=== PATIENT | female | born 1935 | race Asian ===

== ENCOUNTER → 2016-06-29 | Outpatient (CLI) | payer MEDICARE, OTHER ==
[~2016-06-29] MED LIST: ACET-2247 PO; ACYC800T PO; ADV250 IH; ALBU8HFA IH; ALEN70TA48 PO; AMLO-511 PO; AMLO10TA55 PO; AMPI2VIA9 IVPB; ASPI-1093 PO; ATOR10TA84 PO; AUD NEB; BUDE10.2 IH; CALC650T29 PO; CEFT1FRO3 IVPB; CETI-260 PO; CIP250 PO; D-ME118S13 PO; D50SYG IVP; DIGO125T71 PO; DIPH25 PO; DRON2.5C PO; FERR-89 PO; FLUT1DIS5 IH; FLUT44HFA IH; HYDR-3965 PO; INSNOV SQ; IPRA3AMP4 NEB; IPRAHFA IH; KDUR20 PO; LEVO5TAB13 PO; METF10002 PO; METF500T4 PO; MOME17N NS; MONT10TA21 PO; MULT-1238 PO; MULT-1259 PO; ONDA2VIA2 IV; OS500 PO; OXYC-341 PO; PANT40TA25 PO; PRED10TA3 PO; PRED20 PO; RIVA10 PO; RIVA20TA PO; SITA100 PO; TIOT185 IH; ZAFI20TA13 PO; ZOLP10 PO
== END | disposition home or self-care (01) ==
LOC: RADPV 12:59
PROVIDERS: ATTEND Family Medicine
DX: I51.7 Cardiomegaly (principal); I70.0 Atherosclerosis of aorta; J47.9 Bronchiectasis, uncomplicated
CPT/HCPCS: 71020

== ENCOUNTER 2016-06-30 15:52 | Inpatient (IN) | payer MEDICARE, OTHER ==
[~2016-06-30] VITALS: Ht 144.8 cm; Wt 40.1 kg
[~2016-06-30 15:52] MED LIST changes: -ACYC800T PO; -ADV250 IH; -AMLO10TA55 PO; -AMPI2VIA9 IVPB; -ATOR10TA84 PO; -AUD NEB; -BUDE10.2 IH; -CEFT1FRO3 IVPB; -CETI-260 PO; -CIP250 PO; -D-ME118S13 PO; -D50SYG IVP; -DIPH25 PO; -FERR-89 PO; -FLUT44HFA IH; -INSNOV SQ; -IPRA3AMP4 NEB; -KDUR20 PO; -LEVO5TAB13 PO; -METF500T4 PO; -MONT10TA21 PO; -MULT-1259 PO; -ONDA2VIA2 IV; -OS500 PO; -OXYC-341 PO; -PANT40TA25 PO; -PRED20 PO; -RIVA10 PO; -SITA100 PO; -TIOT185 IH; -ZOLP10 PO
[2016-06-30 16:06] LABS: GLUCOSE,POINT OF CARE 132 MG/DL (70-110)
[2016-06-30 17:27] LABS: HEMATOCRIT 43.6 % (36-46); HEMOGLOBIN 14.2 g/dL (12.0-16.0); MEAN CORPUSCULAR HEMOGLOBIN 29.9 pg (26.0-34.0); MEAN CORPUSCULAR HGB CONC 32.6 G/dL (31.0-37.0); MEAN CORPUSCULAR VOLUME 92 fL (80-100); PLATELET COUNT (AUTO) 189 K/uL (150-450); RED BLOOD CELL COUNT(AUTO) 4.75 MIL/uL (4.00-5.20); RED CELL DISTRIBUTION WIDTH 13.6 % (11.5-14.5); WHITE BLOOD COUNT (AUTO) 8.1 K/uL (4.5-11.0)
[2016-06-30 17:47] LABS: BAND NEUTROPHILS % (MANUAL) 21 % (1-5); LYMPHOCYTES % (MANUAL) 20 % (22-44); TOTAL CELLS COUNTED 100
[2016-06-30 17:48] LABS: RBC MORPHOLOGY COMMENT NORMAL RBC MORPH; WBC MORPHOLOGY TOXIC VACUOLATION
[2016-06-30 17:56] LABS: CALCIUM, TOTAL 7.9 mg/dL (8.8-10.5); CREATININE 1.3 mg/dL (0.60-1.30); POTASSIUM 4.1 mmol/L (3.5-5.1)
[2016-06-30 18:03] LABS: ALBUMIN 2.9 g/dL (3.4-5.0); BILIRUBIN,TOTAL 0.8 mg/dL (0.1-1.0); TOTAL PROTEIN, SERUM 7.6 g/dL (6.4-8.2)
[2016-06-30 18:39] LABS: APPEARANCE,URINE CLOUDY (CLEAR); GLUCOSE, URINE (UA) NEGATIVE (NEGATIVE); KETONES,URINE NEGATIVE (NEGATIVE); LEUKOCYTE ESTERASE ,URINE SMALL (NEGATIVE); OCCULT BLOOD,URINE NEGATIVE (NEGATIVE); PROTEIN,URINE POS 1+ (NEGATIVE)
[2016-06-30 18:42] LABS: ADD UA MICROSCOPIC YES
[2016-06-30] MEDS ORDERED: SODIUM CHLORIDE 0.9% 1,000 ML IV ONE (18:45)
[2016-06-30 19:03] LABS: TRANSITIONAL EPI CELLS,URINE Few /LPF (None Seen)
[2016-06-30] MEDS ORDERED: AZITHROMYCIN 500 MG/NS 250 ML IV ONE (19:15)
[2016-06-30] MEDS ORDERED: CefTRIAXone 1 GM/DEXTROSE 50 ML IV ONE (19:15)
[2016-06-30] MEDS ORDERED: ACETAMINOPHEN 325 MG TABLET PO PRN (19:15)
[2016-06-30] MEDS ORDERED: 0.9% SODIUM CHLORIDE 10 ML SYRINGE IVP PRN (19:15)
[2016-06-30 21:22] VITALS: BP 125/70
[2016-06-30] MEDS ORDERED: PNEUMOCOCCAL VACCINE POLYVALENT 0.5 ML VIAL [PPSV23] IM ONE (22:15)
[2016-06-30] MEDS ORDERED: -PHARMACY VACCINE NOTE- MISC ONE ×2 (22:15)
[2016-06-30 23:47] VITALS: BP 116/61
[2016-07-01] VITALS (7 sets, daily range): BP systolic 110–127; BP diastolic 58–80
[2016-07-01] MEDS ORDERED: ACETAMINOPHEN 325 MG TABLET PO PRN ×2 (02:15→02:30)
[2016-07-01] MEDS ORDERED: DEXTROSE 50%-WATER 25 GM/50 ML SYRINGE IVP PRN (02:15)
[2016-07-01] MEDS ORDERED: 0.9% SODIUM CHLORIDE 10 ML SYRINGE IVP PRN (02:30)
[2016-07-01] MEDS ORDERED: MAGNESIUM HYDROXIDE SUSPENSION 30 ML UDCUP PO PRN (02:30)
[2016-07-01] MEDS ORDERED: OxyCODONE HCL/ACETAMINOPHEN 5-325 MG TABLET PO PRN ×2 (02:30)
[2016-07-01] MEDS ORDERED: ONDANSETRON HCL 4 MG/2 ML VIAL IVP PRN (02:30)
[2016-07-01] MEDS ORDERED: ALBUTEROL SULFATE 2.5 MG/0.5 ML NEB SOLUTION NEB SCH (03:00)
[2016-07-01] MEDS: DOCUSATE SODIUM 100 MG CAPSULE PO SCH ×3 (05:35→20:12)
[2016-07-01] MEDS: MethylPREDNISolone SOD SUCC 40 MG/ML VIAL IVP SCH ×5 (05:35→23:50)
[2016-07-01] MEDS: RIVAROXABAN 20 MG TABLET PO SCH ×2 (05:35→17:54)
[2016-07-01] MEDS: ALBUTEROL SULFATE 2.5 MG/0.5 ML NEB SOLUTION NEB SCH ×5 (08:45→22:46)
[2016-07-01] MEDS: IPRATROPIUM BROMIDE 0.5 MG/2.5 ML NEB SOLUTION NEB SCH ×5 (08:45→22:46)
[2016-07-01 09:19] LABS: HEMOGLOBIN 14.4 g/dL (12.0-16.0); MEAN CORPUSCULAR HEMOGLOBIN 30.4 pg (26.0-34.0); MEAN CORPUSCULAR HGB CONC 32.8 G/dL (31.0-37.0); MEAN CORPUSCULAR VOLUME 93 fL (80-100); PLATELET COUNT (AUTO) 207 K/uL (150-450); RED BLOOD CELL COUNT(AUTO) 4.74 MIL/uL (4.00-5.20); RED CELL DISTRIBUTION WIDTH 13.4 % (11.5-14.5)
[2016-07-01 09:26] LABS: CALCIUM, TOTAL 7.7 mg/dL (8.8-10.5); CREATININE 1.2 mg/dL (0.60-1.30); POTASSIUM 4.4 mmol/L (3.5-5.1)
[2016-07-01 10:06] LABS: BAND NEUTROPHILS % (MANUAL) 45 % (1-5); LYMPHOCYTES % (MANUAL) 7 % (22-44); TOTAL CELLS COUNTED 100
[2016-07-01] MEDS: ASPIRIN 81 MG EC TABLET PO SCH (10:09)
[2016-07-01] MEDS: ZAFIRLUKAST 20 MG TABLET PO SCH (10:09)
[2016-07-01] MEDS: PANTOPRAZOLE SODIUM 40 MG/VIAL IVP SCH (10:09)
[2016-07-01] MEDS: DIGOXIN 125 MCG TABLET PO SCH (10:10)
[2016-07-01] MEDS: AmLODIPine BESYLATE 5 MG TABLET PO SCH (10:10)
[2016-07-01 11:41] LABS: GLUCOSE,POINT OF CARE 164 MG/DL (70-110)
[2016-07-01] MEDS: INSULIN ASPART 100 UNITS/ML SQ PRN ×3 (12:03→20:37)
[2016-07-01] MEDS: SODIUM CHLORIDE 0.9% 1,000 ML IV SCH ×2 (13:26→23:17)
[2016-07-01] MEDS ORDERED: CefTRIAXone 1 GM/DEXTROSE 50 ML IV SCH (20:00)
[2016-07-01] MEDS ORDERED: DRONABINOL 2.5 MG CAPSULE PO SCH (21:00)
[2016-07-01 22:31] LABS: GLUCOSE COMMENT 1 Received Meds; GLUCOSE,POINT OF CARE 279 MG/DL (70-110)
[2016-07-01 22:31] LABS: GLUCOSE COMMENT 1 Received Meds; GLUCOSE,POINT OF CARE 301 MG/DL (70-110)
[2016-07-02] MEDS: ALBUTEROL SULFATE 2.5 MG/0.5 ML NEB SOLUTION NEB SCH ×4 (02:54→13:54)
[2016-07-02] MEDS: IPRATROPIUM BROMIDE 0.5 MG/2.5 ML NEB SOLUTION NEB SCH ×4 (02:54→13:54)
[2016-07-02 04:09] VITALS: BP 121/65
[2016-07-02] MEDS: INSULIN ASPART 100 UNITS/ML SQ PRN ×2 (06:29→12:04)
[2016-07-02 07:14] LABS: EOSINOPHILS % (AUTO) 0 % (1.0-6.0); HEMATOCRIT 41.1 % (36-46); HEMOGLOBIN 13.3 g/dL (12.0-16.0); LYMPHOCYTES # (AUTO) 0.6 K/uL (1.0-4.8); LYMPHOCYTES % (AUTO) 9.2 % (22.0-44.0); MEAN CORPUSCULAR HEMOGLOBIN 30.3 pg (26.0-34.0); MEAN CORPUSCULAR HGB CONC 32.4 G/dL (31.0-37.0); MEAN CORPUSCULAR VOLUME 93 fL (80-100); MONOCYTES # (AUTO) 0.2 K/uL (0.1-1.0); MONOCYTES % (AUTO) 2.4 % (2.0-9.0); NEUTROPHILS # (AUTO) 6.1 K/uL (1.8-7.7); PLATELET COUNT (AUTO) 200 K/uL (150-450); RED BLOOD CELL COUNT(AUTO) 4.39 MIL/uL (4.00-5.20); RED CELL DISTRIBUTION WIDTH 13.2 % (11.5-14.5); WHITE BLOOD COUNT (AUTO) 6.9 K/uL (4.5-11.0)
[2016-07-02 07:16] VITALS: BP 127/68
[2016-07-02 07:16] LABS: NEUTROPHILS % (AUTO) 88.4 % (40.0-70.0)
[2016-07-02 07:30] LABS: ANION GAP 6 mmol/L (8-16); CALCIUM, TOTAL 7.8 mg/dL (8.8-10.5); CARBON DIOXIDE 28 mmol/L (22-29); CHLORIDE 100 mmol/L (98-107); CREATININE 0.77 mg/dL (0.60-1.30); GLOMERULAR FILTR. RATE CALC > 60 mL/min (>60); POTASSIUM 4.3 mmol/L (3.5-5.1); SODIUM SERUM 134 mmol/L (136-145); UREA NITROGEN, BLOOD 22 mg/dL (7-18)
[2016-07-02] MEDS ORDERED: SITA100 PO (08:40)
[2016-07-02] MEDS ORDERED: D-ME118S13 PO (08:40)
[2016-07-02] MEDS ORDERED: ALBU8HFA IH (08:40)
[2016-07-02] MEDS ORDERED: DIPH25 PO (08:40)
[2016-07-02] MEDS ORDERED: FERR-89 PO (08:40)
[2016-07-02] MEDS ORDERED: LEVO5TAB13 PO (08:40)
[2016-07-02] MEDS ORDERED: PANT40TA25 PO (08:40)
[2016-07-02] MEDS ORDERED: MULT-1259 PO (08:40)
[2016-07-02] MEDS ORDERED: MONT10TA21 PO (08:40)
[2016-07-02] MEDS: SODIUM CHLORIDE 0.9% 1,000 ML IV SCH (09:30)
[2016-07-02] MEDS: DIGOXIN 125 MCG TABLET PO SCH (09:37)
[2016-07-02] MEDS: DOCUSATE SODIUM 100 MG CAPSULE PO SCH (09:37)
[2016-07-02] MEDS: PANTOPRAZOLE SODIUM 40 MG/VIAL IVP SCH (09:37)
[2016-07-02] MEDS: ZAFIRLUKAST 20 MG TABLET PO SCH (09:37)
[2016-07-02] MEDS: ASPIRIN 81 MG EC TABLET PO SCH (09:37)
[2016-07-02] MEDS: MethylPREDNISolone SOD SUCC 40 MG/ML VIAL IVP SCH (09:37)
[2016-07-02] MEDS: AmLODIPine BESYLATE 5 MG TABLET PO SCH (09:37)
[2016-07-02 11:45] VITALS: BP 132/64
[2016-07-02 12:07] LABS: GLUCOSE,POINT OF CARE 161 MG/DL (70-110)
[2016-07-02 12:45] LABS: ANION GAP 6 mmol/L (8-16); CARBON DIOXIDE 27 mmol/L (22-29); CHLORIDE 99 mmol/L (98-107); CREATININE 0.77 mg/dL (0.60-1.30); GLOMERULAR FILTR. RATE CALC > 60 mL/min (>60); POTASSIUM 4.9 mmol/L (3.5-5.1); SODIUM SERUM 132 mmol/L (136-145); UREA NITROGEN, BLOOD 20 mg/dL (7-18)
[2016-07-05 06:42] LABS: GLUCOSE COMMENT 1 Received Meds; GLUCOSE,POINT OF CARE 158 MG/DL (70-110)
[2016-07-05 08:37] LABS: GLUCOSE COMMENT 1 Received Meds; GLUCOSE,POINT OF CARE 133 MG/DL (70-110)
[2016-07-06] MEDS ORDERED: ALENDRONATE SODIUM 70 MG TABLET PO SCH (06:30)
== END 2016-07-02 15:45 | disposition home or self-care (01) | DRG 189 ==
LOC: EMS 15:54 → 5S 19:30
PROVIDERS: ADMIT Internal Medicine; ATTEND Internal Medicine
DX: J96.20 Acute and chronic respiratory failure, unspecified whether with hypoxia or hypercapnia (principal); E43 Unspecified severe protein-calorie malnutrition; J44.1 Chronic obstructive pulmonary disease with (acute) exacerbation; G45.9 Transient cerebral ischemic attack, unspecified; E87.1 Hypo-osmolality and hyponatremia; N39.0 Urinary tract infection, site not specified; N17.9 Acute kidney failure, unspecified; Z68.1 Body mass index [BMI] 19.9 or less, adult; J84.10 Pulmonary fibrosis, unspecified; E11.9 Type 2 diabetes mellitus without complications; E86.0 Dehydration; I48.0 Paroxysmal atrial fibrillation; E87.8 Other disorders of electrolyte and fluid balance, not elsewhere classified; E83.51 Hypocalcemia; M81.0 Age-related osteoporosis without current pathological fracture; B96.20 Unspecified Escherichia coli [E. coli] as the cause of diseases classified elsewhere; I50.9 Heart failure, unspecified; Z91.013 Allergy to seafood; Z79.01 Long term (current) use of anticoagulants; Z79.82 Long term (current) use of aspirin; Z79.52 Long term (current) use of systemic steroids; Z79.899 Other long term (current) drug therapy; Z95.0 Presence of cardiac pacemaker; Z83.3 Family history of diabetes mellitus; Z82.49 Family history of ischemic heart disease and other diseases of the circulatory system; Z28.20 Immunization not carried out because of patient decision for unspecified reason
CPT/HCPCS: 82570; 82962; 83605; 83930; 83935; 84300; 84560; 87040; 87086; 90471; 93005; 93306; 94640; 96365; 96366; 96368; 99285; C9113; J0456; J0696; J2920; J7030; Q0167

== ENCOUNTER 2016-07-04 17:24 | Inpatient (IN) | payer MEDICARE, OTHER ==
[~2016-07-04] VITALS: Ht 152.4 cm; Wt 44.5 kg
[~2016-07-04 17:24] MED LIST changes: -ASPI-1093 PO; +D-ME118S13 PO; -DRON2.5C PO; -FLUT1DIS5 IH; -HYDR-3965 PO; +LEVO5TAB13 PO; -METF10002 PO; -MOME17N NS; +MONT10TA21 PO; -MULT-1238 PO; +MULT-1259 PO; +PANT40TA25 PO; -PRED10TA3 PO; -RIVA20TA PO; -ZAFI20TA13 PO
[2016-07-04] MEDS ORDERED: ALBUTEROL SULFATE 2.5 MG/0.5 ML NEB SOLUTION NEB ONE (18:30)
[2016-07-04] MEDS ORDERED: IPRATROPIUM BROMIDE 0.5 MG/2.5 ML NEB SOLUTION NEB ONE (18:30)
[2016-07-04] MEDS ORDERED: 0.9% SODIUM CHLORIDE 5 ML NEB SOLUTION NEB ONE (18:57)
[2016-07-04 19:32] LABS: BASOPHILS % (AUTO) 0.2 % (0.0-2.0); EOSINOPHILS % (AUTO) 1.6 % (1.0-6.0); HEMATOCRIT 45.7 % (36-46); HEMOGLOBIN 14.9 g/dL (12.0-16.0); LYMPHOCYTES # (AUTO) 2.7 K/uL (1.0-4.8); MEAN CORPUSCULAR HEMOGLOBIN 29.8 pg (26.0-34.0); MEAN CORPUSCULAR HGB CONC 32.6 G/dL (31.0-37.0); MEAN CORPUSCULAR VOLUME 91 fL (80-100); MONOCYTES # (AUTO) 1.3 K/uL (0.1-1.0); MONOCYTES % (AUTO) 9.2 % (2.0-9.0); PLATELET COUNT (AUTO) 222 K/uL (150-450); RED BLOOD CELL COUNT(AUTO) 5.01 MIL/uL (4.00-5.20); RED CELL DISTRIBUTION WIDTH 13.4 % (11.5-14.5); WHITE BLOOD COUNT (AUTO) 14.3 K/uL (4.5-11.0)
[2016-07-04] MEDS ORDERED: CefTRIAXone 1 GM/DEXTROSE 50 ML IV ONE (20:00)
[2016-07-04 20:10] LABS: ORIG DRAW (USER) PTCARESTAF
[2016-07-04 20:26] LABS: ANION GAP 5 mmol/L (8-16); CALCIUM, TOTAL 8.6 mg/dL (8.8-10.5); CARBON DIOXIDE 33 mmol/L (22-29); CHLORIDE 98 mmol/L (98-107); CREATININE 0.67 mg/dL (0.60-1.30); GLOMERULAR FILTR. RATE CALC > 60 mL/min (>60); POTASSIUM 3.8 mmol/L (3.5-5.1); SODIUM SERUM 136 mmol/L (136-145); UREA NITROGEN, BLOOD 9 mg/dL (7-18)
[2016-07-04 20:33] LABS: LACTIC ACID 1.4 mmol/L (0.4-2.0)
[2016-07-04 20:40] LABS: ALANINE AMINOTRANSFERASE 25 U/L (12-78); ALBUMIN 2.6 g/dL (3.4-5.0); ASPARTATE AMINOTRANSFERASE 26 U/L (15-37); BILIRUBIN,TOTAL 0.2 mg/dL (0.1-1.0); TOTAL PROTEIN, SERUM 7.3 g/dL (6.4-8.2)
[2016-07-04] MEDS ORDERED: OxyCODONE HCL/ACETAMINOPHEN 5-325 MG TABLET PO PRN (21:00)
[2016-07-04] MEDS ORDERED: ONDANSETRON HCL 4 MG/2 ML VIAL IVP PRN (21:00)
[2016-07-04] MEDS ORDERED: ACETAMINOPHEN 325 MG TABLET PO PRN (21:00)
[2016-07-04] MEDS ORDERED: PROMETHAZINE HCL/D-METHORPHAN HB 5 ML ORAL.SYG PO PRN (21:00)
[2016-07-04] MEDS ORDERED: MAGNESIUM HYDROXIDE SUSPENSION 30 ML UDCUP PO PRN (21:00)
[2016-07-04] MEDS ORDERED: BISACODYL 10 MG RECTAL RECTAL SUPPOSITORY PR PRN (21:00)
[2016-07-04] MEDS ORDERED: ALBUTEROL SULFATE 2.5 MG/0.5 ML NEB SOLUTION NEB PRN (21:00)
[2016-07-04 22:14] VITALS: BP 142/76
[2016-07-05] MEDS: HEPARIN SODIUM,PORCINE 5,000 UNITS/ML VIAL SQ SCH ×4 (00:38→23:02)
[2016-07-05] MEDS: ALBUTEROL SULFATE 2.5 MG/0.5 ML NEB SOLUTION NEB SCH ×4 (02:41→21:09)
[2016-07-05] MEDS: IPRATROPIUM BROMIDE 0.5 MG/2.5 ML NEB SOLUTION NEB SCH ×4 (02:42→21:09)
[2016-07-05 04:29] VITALS: BP 143/78
[2016-07-05] MEDS: MethylPREDNISolone SOD SUCC 125 MG/2 ML VIAL IVP SCH ×4 (05:38→23:02)
[2016-07-05 07:26] VITALS: BP 159/83
[2016-07-05] MEDS: MONTELUKAST SODIUM 10 MG TABLET PO SCH (08:27)
[2016-07-05] MEDS: DIGOXIN 125 MCG TABLET PO SCH (08:27)
[2016-07-05] MEDS: AmLODIPine BESYLATE 5 MG TABLET PO SCH (08:27)
[2016-07-05] MEDS: PANTOPRAZOLE SODIUM 40 MG DR TABLET PO SCH (08:27)
[2016-07-05 11:14] VITALS: BP 130/67
[2016-07-05] MEDS: CETIRIZINE HCL 10 MG TABLET PO SCH (12:33)
[2016-07-05 15:44] VITALS: BP 128/67
[2016-07-05 19:30] VITALS: BP 137/69
[2016-07-05] MEDS ORDERED: SODIUM CHLORIDE 0.9% 250 ML IV ONE (21:56)
[2016-07-05] MEDS: ZOLPIDEM TARTRATE 5 MG TABLET PO PRN (22:16)
[2016-07-05] MEDS: FLUTICASONE/VILANTEROL 200-25 MCG/INH INHALER [14] IH SCH (22:16)
[2016-07-05] MEDS: CefTRIAXone 1 GM/DEXTROSE 50 ML IV SCH (22:16)
[2016-07-05 23:07] VITALS: BP 131/71
[2016-07-05] MEDS ORDERED: 0.9% SODIUM CHLORIDE 10 ML SYRINGE IVP PRN (23:15)
[2016-07-06] VITALS (7 sets, daily range): BP systolic 129–148; BP diastolic 66–81
[2016-07-06] MEDS: ALBUTEROL SULFATE 2.5 MG/0.5 ML NEB SOLUTION NEB SCH ×4 (02:23→20:07)
[2016-07-06] MEDS: IPRATROPIUM BROMIDE 0.5 MG/2.5 ML NEB SOLUTION NEB SCH ×4 (02:23→20:07)
[2016-07-06] MEDS: MethylPREDNISolone SOD SUCC 125 MG/2 ML VIAL IVP SCH ×4 (05:49→23:09)
[2016-07-06 05:50] LABS: BASOPHILS % (AUTO) 0.1 % (0.0-2.0); EOSINOPHILS % (AUTO) 0 % (1.0-6.0); HEMATOCRIT 44.2 % (36-46); HEMOGLOBIN 14.1 g/dL (12.0-16.0); LYMPHOCYTES # (AUTO) 1.2 K/uL (1.0-4.8); MEAN CORPUSCULAR HEMOGLOBIN 29.5 pg (26.0-34.0); MEAN CORPUSCULAR HGB CONC 31.8 G/dL (31.0-37.0); MEAN CORPUSCULAR VOLUME 93 fL (80-100); MONOCYTES # (AUTO) 0.5 K/uL (0.1-1.0); MONOCYTES % (AUTO) 5.7 % (2.0-9.0); NEUTROPHILS # (AUTO) 7.3 K/uL (1.8-7.7); NEUTROPHILS % (AUTO) 81.2 % (40.0-70.0); PLATELET COUNT (AUTO) 259 K/uL (150-450); RED BLOOD CELL COUNT(AUTO) 4.77 MIL/uL (4.00-5.20); RED CELL DISTRIBUTION WIDTH 13.3 % (11.5-14.5)
[2016-07-06 06:20] LABS: ALANINE AMINOTRANSFERASE 22 U/L (12-78); ALBUMIN 2.6 g/dL (3.4-5.0); ANION GAP 5 mmol/L (8-16); ASPARTATE AMINOTRANSFERASE 19 U/L (15-37); BILIRUBIN,TOTAL 0.2 mg/dL (0.1-1.0); CALCIUM, TOTAL 8.8 mg/dL (8.8-10.5); CARBON DIOXIDE 33 mmol/L (22-29); CHLORIDE 98 mmol/L (98-107); CREATININE 0.72 mg/dL (0.60-1.30); GLOMERULAR FILTR. RATE CALC > 60 mL/min (>60); PHOSPHORUS 4.5 mg/dL (2.5-4.9); POTASSIUM 4.2 mmol/L (3.5-5.1); SODIUM SERUM 136 mmol/L (136-145); TOTAL PROTEIN, SERUM 7.3 g/dL (6.4-8.2); UREA NITROGEN, BLOOD 16 mg/dL (7-18)
[2016-07-06] MEDS ORDERED: ALENDRONATE SODIUM 70 MG TABLET PO SCH (06:30)
[2016-07-06] MEDS: HEPARIN SODIUM,PORCINE 5,000 UNITS/ML VIAL SQ SCH ×3 (07:57→23:09)
[2016-07-06] MEDS: DIGOXIN 125 MCG TABLET PO SCH (07:58)
[2016-07-06] MEDS: PANTOPRAZOLE SODIUM 40 MG DR TABLET PO SCH (07:58)
[2016-07-06] MEDS: MONTELUKAST SODIUM 10 MG TABLET PO SCH (07:58)
[2016-07-06] MEDS: CETIRIZINE HCL 10 MG TABLET PO SCH (07:59)
[2016-07-06] MEDS: AmLODIPine BESYLATE 5 MG TABLET PO SCH (07:59)
[2016-07-06 11:15] LABS: ABG A-A DIFF O2 56.6 mmHg (10-20.0); ABG BASE EXCESS 2.9 mmol/L (-2.0-3.0); ABG HCO3 26.3 mmol/L (22.0-26.0); ABG OXYHEMOGLOBIN 77.7 % (94.0-100.0); ABG PCO2 42 mmHg (35-45); TEMPERATURE, FAHRENHEIT, BG 98.6 FAHREN (96.0-98.6)
[2016-07-06 11:16] LABS: ALLEN TEST, BLOOD GAS Positive
[2016-07-06] MEDS: FLUTICASONE/VILANTEROL 200-25 MCG/INH INHALER [14] IH SCH (20:05)
[2016-07-06] MEDS: CefTRIAXone 1 GM/DEXTROSE 50 ML IV SCH (20:05)
[2016-07-06] MEDS ORDERED: SODIUM CHLORIDE 0.9% 250 ML IV ONE (20:36)
[2016-07-06] MEDS: ZOLPIDEM TARTRATE 5 MG TABLET PO PRN (21:01)
[2016-07-07] MEDS: ALBUTEROL SULFATE 2.5 MG/0.5 ML NEB SOLUTION NEB SCH ×3 (02:47→13:19)
[2016-07-07] MEDS: IPRATROPIUM BROMIDE 0.5 MG/2.5 ML NEB SOLUTION NEB SCH ×3 (02:47→13:19)
[2016-07-07 04:22] VITALS: BP 153/75
[2016-07-07] MEDS: MethylPREDNISolone SOD SUCC 125 MG/2 ML VIAL IVP SCH (05:20)
[2016-07-07 07:01] LABS: BASOPHILS # (AUTO) 0.01 K/uL (0.00-0.20); BASOPHILS % (AUTO) 0.1 % (0.0-2.0); EOSINOPHILS % (AUTO) 0 % (1.0-6.0); HEMATOCRIT 42.6 % (36-46); HEMOGLOBIN 13.6 g/dL (12.0-16.0); LYMPHOCYTES % (AUTO) 8.4 % (22.0-44.0); MEAN CORPUSCULAR HEMOGLOBIN 29.5 pg (26.0-34.0); MEAN CORPUSCULAR VOLUME 92 fL (80-100); MONOCYTES # (AUTO) 0.3 K/uL (0.1-1.0); MONOCYTES % (AUTO) 2.3 % (2.0-9.0); NEUTROPHILS # (AUTO) 10.6 K/uL (1.8-7.7); PLATELET COUNT (AUTO) 299 K/uL (150-450); RED BLOOD CELL COUNT(AUTO) 4.62 MIL/uL (4.00-5.20); RED CELL DISTRIBUTION WIDTH 13.7 % (11.5-14.5); WHITE BLOOD COUNT (AUTO) 11.9 K/uL (4.5-11.0)
[2016-07-07 07:15] LABS: NEUTROPHILS % (AUTO) 89.3 % (40.0-70.0)
[2016-07-07 07:30] VITALS: BP 152/83
[2016-07-07 07:47] LABS: ANION GAP 6 mmol/L (8-16); CARBON DIOXIDE 33 mmol/L (22-29); CHLORIDE 98 mmol/L (98-107); CREATININE 0.71 mg/dL (0.60-1.30); GLOMERULAR FILTR. RATE CALC > 60 mL/min (>60); POTASSIUM 3.9 mmol/L (3.5-5.1); SODIUM SERUM 137 mmol/L (136-145); UREA NITROGEN, BLOOD 18 mg/dL (7-18)
[2016-07-07 08:03] LABS: CALCIUM, TOTAL 8.8 mg/dL (8.8-10.5)
[2016-07-07] MEDS: PANTOPRAZOLE SODIUM 40 MG DR TABLET PO SCH (08:48)
[2016-07-07] MEDS: DIGOXIN 125 MCG TABLET PO SCH (08:48)
[2016-07-07] MEDS: AmLODIPine BESYLATE 5 MG TABLET PO SCH (08:48)
[2016-07-07] MEDS: MONTELUKAST SODIUM 10 MG TABLET PO SCH (08:48)
[2016-07-07] MEDS: HEPARIN SODIUM,PORCINE 5,000 UNITS/ML VIAL SQ SCH (08:48)
[2016-07-07] MEDS: CETIRIZINE HCL 10 MG TABLET PO SCH (08:49)
[2016-07-07] MEDS ORDERED: PredniSONE 20 MG TABLET PO SCH (09:00)
[2016-07-07 11:26] VITALS: BP 149/84
[2016-07-07] MEDS ORDERED: CETI-260 PO (12:03)
[2016-07-07] MEDS ORDERED: PRED20 PO (12:04)
[2016-07-07] MEDS ORDERED: ADV250 IH (12:05)
[2016-07-07] MEDS ORDERED: CIP250 PO (12:05)
== END 2016-07-07 16:20 | disposition home or self-care (01) | DRG 871 ==
LOC: EMS 17:29 → 5N 21:33
PROVIDERS: ADMIT Hospitalist; ATTEND Hospitalist
DX: A41.9 Sepsis, unspecified organism (principal); E43 Unspecified severe protein-calorie malnutrition; J18.9 Pneumonia, unspecified organism; J96.21 Acute and chronic respiratory failure with hypoxia; J44.0 Chronic obstructive pulmonary disease with (acute) lower respiratory infection; J44.1 Chronic obstructive pulmonary disease with (acute) exacerbation; I50.32 Chronic diastolic (congestive) heart failure; Z68.1 Body mass index [BMI] 19.9 or less, adult; J84.10 Pulmonary fibrosis, unspecified; E78.5 Hyperlipidemia, unspecified; I27.2 Other secondary pulmonary hypertension; I48.2 Chronic atrial fibrillation; J45.909 Unspecified asthma, uncomplicated; K21.9 Gastro-esophageal reflux disease without esophagitis; I11.0 Hypertensive heart disease with heart failure; E11.9 Type 2 diabetes mellitus without complications; Z95.0 Presence of cardiac pacemaker; Z86.711 Personal history of pulmonary embolism; Z91.013 Allergy to seafood; Z79.899 Other long term (current) drug therapy; Z82.49 Family history of ischemic heart disease and other diseases of the circulatory system; Z83.3 Family history of diabetes mellitus
CPT/HCPCS: 82805; 83605; 83735; 84100; 87040; 87081; 93005; 93041; 94640; 96374; 99285; J0696; J1644; J2930; J7050

== ENCOUNTER 2016-07-23 23:20 | Emergency (ER) | payer MEDICARE, OTHER ==
[~2016-07-23] VITALS: Ht 152.4 cm; Wt 120.0 kg
[~2016-07-23 23:20] MED LIST changes: +ADV250 IH; -AMLO-511 PO; +CETI-260 PO; +CIP250 PO; +PRED20 PO
[2016-07-23] MEDS ORDERED: BUDE10.2 IH (23:29)
[2016-07-23] MEDS ORDERED: RIVA10 PO (23:29)
[2016-07-23] MEDS ORDERED: AMLO10TA55 PO (23:29)
[2016-07-23] MEDS ORDERED: SITA100 PO (23:29)
[2016-07-23] MEDS ORDERED: METF500T4 PO (23:29)
[2016-07-23] MEDS ORDERED: TIOT185 IH (23:29)
[2016-07-23 23:37] LABS: GLUCOSE,POINT OF CARE 363 MG/DL (70-110)
[2016-07-24] MEDS ORDERED: KETOROLAC TROMETHAMINE 30 MG/ML VIAL IM ONE (03:30)
[2016-07-24 03:59] VITALS: BP 114/57
== END 2016-07-24 06:06 | disposition home or self-care (01) ==
LOC: EMS 23:22
DX: J06.9 Acute upper respiratory infection, unspecified (principal); R07.89 Other chest pain; I10 Essential (primary) hypertension; E11.9 Type 2 diabetes mellitus without complications; J44.9 Chronic obstructive pulmonary disease, unspecified; I48.91 Unspecified atrial fibrillation; J45.909 Unspecified asthma, uncomplicated; Z91.018 Allergy to other foods; Z91.013 Allergy to seafood
CPT/HCPCS: 71020; 82962; 96372; 99284; J1885

== ENCOUNTER 2016-07-26 15:04 | Inpatient (IN) | payer MEDICARE, OTHER ==
[~2016-07-26] VITALS: Ht 152.4 cm; Wt 38.0 kg
[~2016-07-26 15:04] MED LIST changes: +AMLO10TA55 PO; +BUDE10.2 IH; -CIP250 PO; +METF500T4 PO; +RIVA10 PO; +SITA100 PO; +TIOT185 IH
[2016-07-26] MEDS ORDERED: IPRATROPIUM BROMIDE 0.5 MG/2.5 ML NEB SOLUTION NEB ONE (15:30)
[2016-07-26] MEDS ORDERED: MethylPREDNISolone SOD SUCC 125 MG/2 ML VIAL IVP ONE (15:30)
[2016-07-26] MEDS ORDERED: ALBUTEROL SULFATE 2.5 MG/0.5 ML NEB SOLUTION NEB ONE (15:30)
[2016-07-26 15:49] LABS: BASOPHILS # (AUTO) 0.05 K/uL (0.00-0.20); BASOPHILS % (AUTO) 0.3 % (0.0-2.0); EOSINOPHILS # (AUTO) 0.01 K/uL (0.00-0.70); EOSINOPHILS % (AUTO) 0.03 % (1.0-6.0); HEMATOCRIT 36.5 % (36-46); LYMPHOCYTES # (AUTO) 2.3 K/uL (1.0-4.8); LYMPHOCYTES % (AUTO) 12.7 % (22.0-44.0); MEAN CORPUSCULAR HEMOGLOBIN 29.8 pg (26.0-34.0); MEAN CORPUSCULAR HGB CONC 32.9 G/dL (31.0-37.0); MEAN CORPUSCULAR VOLUME 91 fL (80-100); MONOCYTES # (AUTO) 1.3 K/uL (0.1-1.0); NEUTROPHILS # (AUTO) 14.7 K/uL (1.8-7.7); PLATELET COUNT (AUTO) 242 K/uL (150-450); RED BLOOD CELL COUNT(AUTO) 4.02 MIL/uL (4.00-5.20); RED CELL DISTRIBUTION WIDTH 14.3 % (11.5-14.5); WHITE BLOOD COUNT (AUTO) 18.4 K/uL (4.5-11.0)
[2016-07-26 16:04] LABS: ANION GAP 11 mmol/L (8-16); CALCIUM, TOTAL 7.8 mg/dL (8.8-10.5); CARBON DIOXIDE 27 mmol/L (22-29); CHLORIDE 93 mmol/L (98-107); CREATININE 1.87 mg/dL (0.60-1.30); GLOMERULAR FILTR. RATE CALC 26 mL/min (>60); POTASSIUM 4.7 mmol/L (3.5-5.1); SODIUM SERUM 131 mmol/L (136-145); UREA NITROGEN, BLOOD 33 mg/dL (7-18)
[2016-07-26 16:05] LABS: ABG A-A DIFF O2 498.4 mmHg (10-20.0); ABG BASE EXCESS -3.8 mmol/L (-2.0-3.0); ABG HCO3 21.6 mmol/L (22.0-26.0); ABG OXYHEMOGLOBIN 96.6 % (94.0-100.0); ABG PCO2 45 mmHg (35-45); ABG PH 7.316 (7.35-7.450); ALLEN TEST, BLOOD GAS Positive; TEMPERATURE, FAHRENHEIT, BG 102.4 FAHREN (96.0-98.6)
[2016-07-26 16:06] LABS: IPAP, BG 14 cm H2O
[2016-07-26 16:13] LABS: B-TYPE NATRIURETIC PEPTIDE 2360 pg/mL (0-100)
[2016-07-26 16:15] LABS: LACTIC ACID 5.9 mmol/L (0.4-2.0)
[2016-07-26 16:29] LABS: ALANINE AMINOTRANSFERASE 33 U/L (12-78); ALBUMIN 2.8 g/dL (3.4-5.0); ASPARTATE AMINOTRANSFERASE 43 U/L (15-37); BILIRUBIN,TOTAL 1.4 mg/dL (0.1-1.0); CREATINE KINASE MB 1.7 ng/mL (0-5); CREATINE KINASE, TOTAL 81 U/L (26-192); TOTAL PROTEIN, SERUM 7.4 g/dL (6.4-8.2)
[2016-07-26] MEDS ORDERED: ONDANSETRON HCL 4 MG/2 ML VIAL IVP PRN (16:30)
[2016-07-26] MEDS ORDERED: ZOLPIDEM TARTRATE 10 MG TABLET PO PRN (16:30)
[2016-07-26] MEDS ORDERED: ACETAMINOPHEN 325 MG TABLET PO PRN (16:30)
[2016-07-26] MEDS ORDERED: CefTRIAXone 1 GM/DEXTROSE 50 ML IV ONE (16:30)
[2016-07-26] MEDS ORDERED: AZITHROMYCIN 500 MG/NS 250 ML IV ONE (16:30)
[2016-07-26] MEDS ORDERED: OxyCODONE HCL/ACETAMINOPHEN 5-325 MG TABLET PO PRN (16:30)
[2016-07-26] MEDS ORDERED: ALBUTEROL SULFATE 2.5 MG/0.5 ML NEB SOLUTION NEB PRN (16:30)
[2016-07-26 16:42] LABS: APPEARANCE,URINE TURBID (CLEAR); GLUCOSE, URINE (UA) NEGATIVE (NEGATIVE); KETONES,URINE NEGATIVE (NEGATIVE); LEUKOCYTE ESTERASE ,URINE MODERATE (NEGATIVE); OCCULT BLOOD,URINE MODERATE (NEGATIVE); PROTEIN,URINE SEE CONFIRM (NEGATIVE)
[2016-07-26 16:45] LABS: ADD UA MICROSCOPIC YES
[2016-07-26] MEDS ORDERED: DEXTROSE 50%-WATER 25 GM/50 ML SYRINGE IVP PRN (16:45)
[2016-07-26] MEDS ORDERED: ALBUMIN HUMAN 25%-50GM/200ML 200 ML IV ONE (16:45)
[2016-07-26] MEDS ORDERED: FUROSEMIDE 40 MG/4 ML VIAL IVP ONE (16:45)
[2016-07-26 16:48] LABS: SULFOSALICYLIC ACID,URINE 2+ (Negative)
[2016-07-26 16:52] LABS: AMORPHOUS SEDIMENT,UR Few /LPF (None Seen); SQUAMOUS EPITHELIAL CELL,UR Few /LPF (None Seen)
[2016-07-26 16:53] LABS: WBC,URINE 51-100 /HPF (0-5)
[2016-07-26] MEDS ORDERED: ACETAMINOPHEN 1000 MG/ISO-OSM 100 ML IV ONE (17:30)
[2016-07-26 17:33] LABS: GLUCOSE,POINT OF CARE 225 MG/DL (70-110)
[2016-07-26 17:45] LABS: REFLEX LACTIC ACID? YES YES
[2016-07-26] MEDS: ALBUTEROL SULFATE 2.5 MG/0.5 ML NEB SOLUTION NEB SCH (19:24)
[2016-07-26] MEDS: IPRATROPIUM BROMIDE 0.5 MG/2.5 ML NEB SOLUTION NEB SCH (19:24)
[2016-07-26 21:00] VITALS: BP 108/50
[2016-07-26] MEDS ORDERED: ASPIRIN 81 MG EC TABLET PO ONE (22:00)
[2016-07-26] MEDS: MethylPREDNISolone SOD SUCC 125 MG/2 ML VIAL IVP SCH (22:25)
[2016-07-26] MEDS: INSULIN ASPART 100 UNITS/ML SQ PRN (22:25)
[2016-07-26] MEDS: NITROGLYCERIN 2% (1 GM=INCH) PACKET TP SCH (23:13)
[2016-07-26 23:44] VITALS: BP 107/56
[2016-07-27] MEDS ORDERED: HEPARIN SODIUM,PORCINE 5,000 UNITS/ML VIAL SQ SCH
[2016-07-27] MEDS: ALBUTEROL SULFATE 2.5 MG/0.5 ML NEB SOLUTION NEB SCH ×4 (02:09→20:40)
[2016-07-27] MEDS: IPRATROPIUM BROMIDE 0.5 MG/2.5 ML NEB SOLUTION NEB SCH ×4 (02:09→20:40)
[2016-07-27] MEDS: MethylPREDNISolone SOD SUCC 125 MG/2 ML VIAL IVP SCH ×4 (03:29→21:21)
[2016-07-27 04:20] VITALS: BP 101/51
[2016-07-27] MEDS: INSULIN ASPART 100 UNITS/ML SQ PRN ×4 (06:05→21:25)
[2016-07-27 07:40] LABS: BASOPHILS # (AUTO) 0.01 K/uL (0.00-0.20); BASOPHILS % (AUTO) 0.1 % (0.0-2.0); EOSINOPHILS % (AUTO) 0 % (1.0-6.0); HEMATOCRIT 33.4 % (36-46); LYMPHOCYTES # (AUTO) 0.8 K/uL (1.0-4.8); LYMPHOCYTES % (AUTO) 9.2 % (22.0-44.0); MEAN CORPUSCULAR HEMOGLOBIN 29.9 pg (26.0-34.0); MEAN CORPUSCULAR VOLUME 91 fL (80-100); MONOCYTES # (AUTO) 0.1 K/uL (0.1-1.0); MONOCYTES % (AUTO) 0.6 % (2.0-9.0); NEUTROPHILS # (AUTO) 8.1 K/uL (1.8-7.7); PLATELET COUNT (AUTO) 196 K/uL (150-450); RED BLOOD CELL COUNT(AUTO) 3.67 MIL/uL (4.00-5.20); RED CELL DISTRIBUTION WIDTH 14.4 % (11.5-14.5)
[2016-07-27 07:45] VITALS: BP 108/54
[2016-07-27 07:49] LABS: NEUTROPHILS % (AUTO) 90.1 % (40.0-70.0); WHITE BLOOD COUNT (AUTO) 14.2 K/uL (4.5-11.0)
[2016-07-27] MEDS: NITROGLYCERIN 2% (1 GM=INCH) PACKET TP SCH ×3 (08:00→23:16)
[2016-07-27 08:03] LABS: ALBUMIN 3.5 g/dL (3.4-5.0); BILIRUBIN,TOTAL 0.9 mg/dL (0.1-1.0); CALCIUM, TOTAL 7.8 mg/dL (8.8-10.5); CREATININE 1.39 mg/dL (0.60-1.30); POTASSIUM 3.8 mmol/L (3.5-5.1); TOTAL PROTEIN, SERUM 7.3 g/dL (6.4-8.2)
[2016-07-27] MEDS: ATORVASTATIN CALCIUM 10 MG TABLET PO SCH (10:16)
[2016-07-27] MEDS: PANTOPRAZOLE SODIUM 40 MG DR TABLET PO SCH (10:16)
[2016-07-27] MEDS: DIGOXIN 125 MCG TABLET PO SCH (10:17)
[2016-07-27] MEDS: SitaGLIPtin PHOSPHATE 100 MG TABLET PO SCH (10:17)
[2016-07-27] MEDS: CETIRIZINE HCL 10 MG TABLET PO SCH (10:17)
[2016-07-27] MEDS: RIVAROXABAN 10 MG TABLET PO SCH (10:17)
[2016-07-27] MEDS: AmLODIPine BESYLATE 10 MG TABLET PO SCH (10:17)
[2016-07-27] MEDS: MONTELUKAST SODIUM 10 MG TABLET PO SCH (10:17)
[2016-07-27] MEDS: MetFORMIN HCL 500 MG TABLET PO SCH (10:17)
[2016-07-27] MEDS ORDERED: OS500 PO (10:59)
[2016-07-27 11:39] VITALS: BP 115/71
[2016-07-27] MEDS ORDERED: SODIUM CHLORIDE 0.9% 500 ML IV ONE (15:16)
[2016-07-27] MEDS: CefTRIAXone 1 GM/DEXTROSE 50 ML IV SCH (15:21)
[2016-07-27] MEDS: AZITHROMYCIN 500 MG/NS 250 ML IV SCH (15:22)
[2016-07-27 15:57] VITALS: BP 102/50
[2016-07-27 19:37] VITALS: BP 93/51
[2016-07-27] MEDS: ValACYclovir HCL 500 MG TABLET PO SCH (21:22)
[2016-07-27 23:48] VITALS: BP 105/55
[2016-07-28] MEDS: ALBUTEROL SULFATE 2.5 MG/0.5 ML NEB SOLUTION NEB SCH ×4 (02:12→21:26)
[2016-07-28] MEDS: IPRATROPIUM BROMIDE 0.5 MG/2.5 ML NEB SOLUTION NEB SCH ×4 (02:12→21:26)
[2016-07-28] MEDS: MethylPREDNISolone SOD SUCC 125 MG/2 ML VIAL IVP SCH ×5 (02:20→23:36)
[2016-07-28 05:15] VITALS: BP 100/53
[2016-07-28] MEDS: INSULIN ASPART 100 UNITS/ML SQ PRN ×4 (06:45→21:29)
[2016-07-28 07:50] VITALS: BP 121/63
[2016-07-28 07:52] LABS: EOSINOPHILS % (AUTO) 0 % (1.0-6.0); HEMATOCRIT 32.8 % (36-46); LYMPHOCYTES # (AUTO) 0.8 K/uL (1.0-4.8); LYMPHOCYTES % (AUTO) 4.5 % (22.0-44.0); MEAN CORPUSCULAR HEMOGLOBIN 29.9 pg (26.0-34.0); MEAN CORPUSCULAR HGB CONC 33.5 G/dL (31.0-37.0); MEAN CORPUSCULAR VOLUME 89 fL (80-100); MONOCYTES # (AUTO) 0.2 K/uL (0.1-1.0); MONOCYTES % (AUTO) 1.3 % (2.0-9.0); NEUTROPHILS # (AUTO) 16.2 K/uL (1.8-7.7); PLATELET COUNT (AUTO) 235 K/uL (150-450); RED BLOOD CELL COUNT(AUTO) 3.66 MIL/uL (4.00-5.20); RED CELL DISTRIBUTION WIDTH 14.9 % (11.5-14.5); WHITE BLOOD COUNT (AUTO) 17.2 K/uL (4.5-11.0)
[2016-07-28] MEDS: NITROGLYCERIN 2% (1 GM=INCH) PACKET TP SCH ×3 (08:00→23:36)
[2016-07-28 08:05] LABS: NEUTROPHILS % (AUTO) 94.2 % (40.0-70.0)
[2016-07-28 08:41] LABS: ALBUMIN 3.1 g/dL (3.4-5.0); BILIRUBIN,TOTAL 0.7 mg/dL (0.1-1.0); CALCIUM, TOTAL 7.9 mg/dL (8.8-10.5); CREATININE 1.52 mg/dL (0.60-1.30); MAGNESIUM 2.4 mg/dL (1.80-2.40); POTASSIUM 4.7 mmol/L (3.5-5.1); TOTAL PROTEIN, SERUM 6.9 g/dL (6.4-8.2)
[2016-07-28] MEDS: MetFORMIN HCL 500 MG TABLET PO SCH (09:50)
[2016-07-28] MEDS: MONTELUKAST SODIUM 10 MG TABLET PO SCH (09:50)
[2016-07-28] MEDS: RIVAROXABAN 10 MG TABLET PO SCH (09:50)
[2016-07-28] MEDS: PANTOPRAZOLE SODIUM 40 MG DR TABLET PO SCH (09:50)
[2016-07-28] MEDS: AmLODIPine BESYLATE 10 MG TABLET PO SCH (09:50)
[2016-07-28] MEDS: CETIRIZINE HCL 10 MG TABLET PO SCH (09:50)
[2016-07-28] MEDS: ValACYclovir HCL 500 MG TABLET PO SCH ×3 (09:50→20:48)
[2016-07-28] MEDS: DIGOXIN 125 MCG TABLET PO SCH (09:50)
[2016-07-28] MEDS: SitaGLIPtin PHOSPHATE 100 MG TABLET PO SCH (09:50)
[2016-07-28] MEDS: ATORVASTATIN CALCIUM 10 MG TABLET PO SCH (09:50)
[2016-07-28 11:42] VITALS: BP 113/53
[2016-07-28 15:44] VITALS: BP 109/52
[2016-07-28] MEDS: ACYCLOVIR 800 MG TABLET PO SCH ×2 (16:13→20:48)
[2016-07-28] MEDS: CefTRIAXone 1 GM/DEXTROSE 50 ML IV SCH (16:13)
[2016-07-28] MEDS: AZITHROMYCIN 500 MG/NS 250 ML IV SCH (16:14)
[2016-07-28 17:22] LABS: GLUCOSE COMMENT 1 Received Meds; GLUCOSE,POINT OF CARE 186 MG/DL (70-110)
[2016-07-28] MEDS ORDERED: 0.9% SODIUM CHLORIDE 10 ML SYRINGE IVP PRN (18:45)
[2016-07-28 19:49] VITALS: BP 112/53
[2016-07-29] VITALS (7 sets, daily range): BP systolic 114–128; BP diastolic 44–60
[2016-07-29] MEDS: IPRATROPIUM BROMIDE 0.5 MG/2.5 ML NEB SOLUTION NEB SCH ×4 (03:50→19:58)
[2016-07-29] MEDS: ALBUTEROL SULFATE 2.5 MG/0.5 ML NEB SOLUTION NEB SCH ×4 (03:50→19:58)
[2016-07-29] MEDS: MethylPREDNISolone SOD SUCC 125 MG/2 ML VIAL IVP SCH ×3 (05:59→17:38)
[2016-07-29] MEDS: INSULIN ASPART 100 UNITS/ML SQ PRN ×3 (06:35→17:38)
[2016-07-29 07:25] LABS: EOSINOPHILS % (AUTO) 0 % (1.0-6.0); HEMATOCRIT 31.1 % (36-46); HEMOGLOBIN 10.4 g/dL (12.0-16.0); LYMPHOCYTES # (AUTO) 0.6 K/uL (1.0-4.8); LYMPHOCYTES % (AUTO) 4.3 % (22.0-44.0); MEAN CORPUSCULAR HEMOGLOBIN 29.8 pg (26.0-34.0); MEAN CORPUSCULAR HGB CONC 33.3 G/dL (31.0-37.0); MEAN CORPUSCULAR VOLUME 89 fL (80-100); MONOCYTES # (AUTO) 0.3 K/uL (0.1-1.0); MONOCYTES % (AUTO) 1.9 % (2.0-9.0); NEUTROPHILS # (AUTO) 12.5 K/uL (1.8-7.7); PLATELET COUNT (AUTO) 225 K/uL (150-450); RED BLOOD CELL COUNT(AUTO) 3.48 MIL/uL (4.00-5.20); WHITE BLOOD COUNT (AUTO) 13.3 K/uL (4.5-11.0)
[2016-07-29 07:38] LABS: NEUTROPHILS % (AUTO) 93.8 % (40.0-70.0)
[2016-07-29 07:51] LABS: ALBUMIN 3.3 g/dL (3.4-5.0); BILIRUBIN,TOTAL 0.7 mg/dL (0.1-1.0); CREATININE 1.5 mg/dL (0.60-1.30); MAGNESIUM 2.4 mg/dL (1.80-2.40); POTASSIUM 4.3 mmol/L (3.5-5.1); TOTAL PROTEIN, SERUM 6.9 g/dL (6.4-8.2)
[2016-07-29] MEDS: NITROGLYCERIN 2% (1 GM=INCH) PACKET TP SCH ×2 (08:00→15:18)
[2016-07-29] MEDS: MONTELUKAST SODIUM 10 MG TABLET PO SCH (08:51)
[2016-07-29] MEDS: MetFORMIN HCL 500 MG TABLET PO SCH (08:51)
[2016-07-29] MEDS: AmLODIPine BESYLATE 10 MG TABLET PO SCH (08:51)
[2016-07-29] MEDS: ValACYclovir HCL 500 MG TABLET PO SCH ×3 (08:53→21:17)
[2016-07-29] MEDS: ATORVASTATIN CALCIUM 10 MG TABLET PO SCH (08:53)
[2016-07-29] MEDS: SitaGLIPtin PHOSPHATE 100 MG TABLET PO SCH (08:53)
[2016-07-29] MEDS: PANTOPRAZOLE SODIUM 40 MG DR TABLET PO SCH (08:53)
[2016-07-29] MEDS: DIGOXIN 125 MCG TABLET PO SCH (08:53)
[2016-07-29] MEDS: CETIRIZINE HCL 10 MG TABLET PO SCH (08:54)
[2016-07-29] MEDS: RIVAROXABAN 10 MG TABLET PO SCH (08:54)
[2016-07-29] MEDS: ACYCLOVIR 800 MG TABLET PO SCH ×3 (08:55→21:17)
[2016-07-29] MEDS ORDERED: CefoTEtan DISOD 2 GM/DEXTROSE 50 ML IV SCH (13:00)
[2016-07-29 13:33] LABS: GLUCOSE,POINT OF CARE 271 MG/DL (70-110)
[2016-07-29] MEDS ORDERED: VANCOMYCIN HCL 750 MG in DEXTROSE 5%-WATER 150 ML IV ONE (14:00)
[2016-07-29 21:57] LABS: GLUCOSE COMMENT 1 Received Meds; GLUCOSE,POINT OF CARE 240 MG/DL (70-110)
[2016-07-29 21:57] LABS: GLUCOSE COMMENT 1 Received Meds; GLUCOSE,POINT OF CARE 327 MG/DL (70-110)
[2016-07-29 21:57] LABS: GLUCOSE COMMENT 1 Received Meds; GLUCOSE,POINT OF CARE 235 MG/DL (70-110)
[2016-07-29 21:57] LABS: GLUCOSE COMMENT 1 Received Meds; GLUCOSE,POINT OF CARE 244 MG/DL (70-110)
[2016-07-29 22:32] LABS: GLUCOSE COMMENT 1 Received Meds; GLUCOSE,POINT OF CARE 153 MG/DL (70-110)
[2016-07-30] VITALS (7 sets, daily range): BP systolic 103–143; BP diastolic 56–81
[2016-07-30] MEDS: MethylPREDNISolone SOD SUCC 125 MG/2 ML VIAL IVP SCH ×3 (00:23→11:38)
[2016-07-30] MEDS: NITROGLYCERIN 2% (1 GM=INCH) PACKET TP SCH ×4 (00:23→23:58)
[2016-07-30] MEDS: PIPERACILLIN SODIUM/TAZOBACTAM 2.25 GM in DEXTROSE 5%-WATER 50 ML IV SCH ×5 (00:24→23:58)
[2016-07-30] MEDS: IPRATROPIUM BROMIDE 0.5 MG/2.5 ML NEB SOLUTION NEB SCH ×4 (01:50→19:45)
[2016-07-30] MEDS: ALBUTEROL SULFATE 2.5 MG/0.5 ML NEB SOLUTION NEB SCH ×4 (01:50→19:45)
[2016-07-30] MEDS: INSULIN ASPART 100 UNITS/ML SQ PRN ×3 (05:39→21:49)
[2016-07-30 06:36] LABS: BASOPHILS % (AUTO) 0.1 % (0.0-2.0); EOSINOPHILS % (AUTO) 0 % (1.0-6.0); HEMATOCRIT 32.1 % (36-46); HEMOGLOBIN 10.4 g/dL (12.0-16.0); LYMPHOCYTES # (AUTO) 0.6 K/uL (1.0-4.8); LYMPHOCYTES % (AUTO) 3.8 % (22.0-44.0); MEAN CORPUSCULAR HEMOGLOBIN 29.3 pg (26.0-34.0); MEAN CORPUSCULAR HGB CONC 32.3 G/dL (31.0-37.0); MEAN CORPUSCULAR VOLUME 91 fL (80-100); MONOCYTES # (AUTO) 0.4 K/uL (0.1-1.0); MONOCYTES % (AUTO) 2.4 % (2.0-9.0); PLATELET COUNT (AUTO) 256 K/uL (150-450); RED BLOOD CELL COUNT(AUTO) 3.54 MIL/uL (4.00-5.20); RED CELL DISTRIBUTION WIDTH 14.2 % (11.5-14.5)
[2016-07-30 07:16] LABS: NEUTROPHILS % (AUTO) 93.7 % (40.0-70.0)
[2016-07-30 07:17] LABS: GLUCOSE COMMENT 1 Received Meds; GLUCOSE,POINT OF CARE 263 MG/DL (70-110)
[2016-07-30 08:00] LABS: ALBUMIN 3.5 g/dL (3.4-5.0); BILIRUBIN,TOTAL 0.8 mg/dL (0.1-1.0); CALCIUM, TOTAL 8.7 mg/dL (8.8-10.5); CREATININE 1.47 mg/dL (0.60-1.30); POTASSIUM 4.4 mmol/L (3.5-5.1); TOTAL PROTEIN, SERUM 7.2 g/dL (6.4-8.2)
[2016-07-30] MEDS: MONTELUKAST SODIUM 10 MG TABLET PO SCH (09:03)
[2016-07-30] MEDS: PANTOPRAZOLE SODIUM 40 MG DR TABLET PO SCH (09:03)
[2016-07-30] MEDS: CETIRIZINE HCL 10 MG TABLET PO SCH (09:04)
[2016-07-30] MEDS: ACYCLOVIR 800 MG TABLET PO SCH ×3 (09:04→21:46)
[2016-07-30] MEDS: RIVAROXABAN 10 MG TABLET PO SCH (09:04)
[2016-07-30] MEDS: AmLODIPine BESYLATE 10 MG TABLET PO SCH (09:04)
[2016-07-30] MEDS: MetFORMIN HCL 500 MG TABLET PO SCH (09:05)
[2016-07-30] MEDS: ATORVASTATIN CALCIUM 10 MG TABLET PO SCH (09:05)
[2016-07-30] MEDS: DIGOXIN 125 MCG TABLET PO SCH (09:05)
[2016-07-30] MEDS: SitaGLIPtin PHOSPHATE 100 MG TABLET PO SCH (09:13)
[2016-07-30] MEDS: MethylPREDNISolone SOD SUCC 40 MG/ML VIAL IVP SCH ×3 (12:00→23:58)
[2016-07-31] MEDS: IPRATROPIUM BROMIDE 0.5 MG/2.5 ML NEB SOLUTION NEB SCH ×4 (02:59→20:18)
[2016-07-31] MEDS: ALBUTEROL SULFATE 2.5 MG/0.5 ML NEB SOLUTION NEB SCH ×4 (02:59→20:18)
[2016-07-31 04:36] VITALS: BP 137/69
[2016-07-31] MEDS: PIPERACILLIN SODIUM/TAZOBACTAM 2.25 GM in DEXTROSE 5%-WATER 50 ML IV SCH ×4 (06:35→23:41)
[2016-07-31] MEDS: MethylPREDNISolone SOD SUCC 40 MG/ML VIAL IVP SCH (06:35)
[2016-07-31] MEDS: INSULIN ASPART 100 UNITS/ML SQ PRN ×4 (06:42→21:09)
[2016-07-31 06:56] LABS: EOSINOPHILS % (AUTO) 0 % (1.0-6.0); HEMATOCRIT 28.5 % (36-46); HEMOGLOBIN 9.8 g/dL (12.0-16.0); LYMPHOCYTES # (AUTO) 0.5 K/uL (1.0-4.8); LYMPHOCYTES % (AUTO) 3.3 % (22.0-44.0); MEAN CORPUSCULAR HEMOGLOBIN 30.3 pg (26.0-34.0); MEAN CORPUSCULAR HGB CONC 34.2 G/dL (31.0-37.0); MEAN CORPUSCULAR VOLUME 88 fL (80-100); MONOCYTES # (AUTO) 0.2 K/uL (0.1-1.0); MONOCYTES % (AUTO) 1.7 % (2.0-9.0); NEUTROPHILS # (AUTO) 12.8 K/uL (1.8-7.7); PLATELET COUNT (AUTO) 198 K/uL (150-450); RED BLOOD CELL COUNT(AUTO) 3.22 MIL/uL (4.00-5.20); RED CELL DISTRIBUTION WIDTH 14.2 % (11.5-14.5); WHITE BLOOD COUNT (AUTO) 13.5 K/uL (4.5-11.0)
[2016-07-31 07:07] LABS: ALBUMIN 3.3 g/dL (3.4-5.0); BILIRUBIN,TOTAL 0.8 mg/dL (0.1-1.0); CALCIUM, TOTAL 8.9 mg/dL (8.8-10.5); CREATININE 1.23 mg/dL (0.60-1.30); POTASSIUM 3.8 mmol/L (3.5-5.1)
[2016-07-31 08:00] VITALS: BP 126/64
[2016-07-31] MEDS: NITROGLYCERIN 2% (1 GM=INCH) PACKET TP SCH ×3 (08:05→23:41)
[2016-07-31] MEDS: ATORVASTATIN CALCIUM 10 MG TABLET PO SCH (08:06)
[2016-07-31] MEDS: MetFORMIN HCL 500 MG TABLET PO SCH (08:06)
[2016-07-31] MEDS: AmLODIPine BESYLATE 10 MG TABLET PO SCH (08:06)
[2016-07-31] MEDS: PANTOPRAZOLE SODIUM 40 MG DR TABLET PO SCH (08:06)
[2016-07-31] MEDS: DIGOXIN 125 MCG TABLET PO SCH (08:06)
[2016-07-31] MEDS: MONTELUKAST SODIUM 10 MG TABLET PO SCH (08:07)
[2016-07-31] MEDS: RIVAROXABAN 10 MG TABLET PO SCH (08:07)
[2016-07-31] MEDS: CETIRIZINE HCL 10 MG TABLET PO SCH (08:07)
[2016-07-31] MEDS: ACYCLOVIR 800 MG TABLET PO SCH ×3 (08:07→21:07)
[2016-07-31] MEDS: SitaGLIPtin PHOSPHATE 100 MG TABLET PO SCH (08:15)
[2016-07-31 11:03] VITALS: BP 121/57
[2016-07-31 16:07] VITALS: BP 122/59
[2016-07-31 17:33] LABS: GLUCOSE COMMENT 1 Received Meds; GLUCOSE,POINT OF CARE 190 MG/DL (70-110)
[2016-07-31 17:33] LABS: GLUCOSE COMMENT 1 Received Meds; GLUCOSE,POINT OF CARE 225 MG/DL (70-110)
[2016-07-31 17:33] LABS: GLUCOSE COMMENT 1 Received Meds; GLUCOSE,POINT OF CARE 160 MG/DL (70-110)
[2016-07-31 17:33] LABS: GLUCOSE,POINT OF CARE 136 MG/DL (70-110)
[2016-07-31 17:33] LABS: GLUCOSE COMMENT 1 Received Meds; GLUCOSE,POINT OF CARE 352 MG/DL (70-110)
[2016-07-31 19:32] VITALS: BP 126/57
[2016-07-31] MEDS: FLUTICASONE PROPIONATE 50 MCG/SPRAY 16 GM NASAL SPRAY NASAL SCH (21:07)
[2016-07-31 23:26] VITALS: BP 122/68
[2016-08-01] MEDS: IPRATROPIUM BROMIDE 0.5 MG/2.5 ML NEB SOLUTION NEB SCH ×4 (02:13→20:18)
[2016-08-01] MEDS: ALBUTEROL SULFATE 2.5 MG/0.5 ML NEB SOLUTION NEB SCH ×4 (02:13→20:18)
[2016-08-01 05:14] VITALS: BP 124/63
[2016-08-01] MEDS: PIPERACILLIN SODIUM/TAZOBACTAM 2.25 GM in DEXTROSE 5%-WATER 50 ML IV SCH ×3 (05:58→17:27)
[2016-08-01] MEDS: INSULIN ASPART 100 UNITS/ML SQ PRN ×3 (06:00→17:31)
[2016-08-01 07:14] VITALS: BP 128/63
[2016-08-01] MEDS: NITROGLYCERIN 2% (1 GM=INCH) PACKET TP SCH ×2 (08:43→17:50)
[2016-08-01] MEDS: FLUTICASONE PROPIONATE 50 MCG/SPRAY 16 GM NASAL SPRAY NASAL SCH ×2 (08:43→21:04)
[2016-08-01] MEDS: DIGOXIN 125 MCG TABLET PO SCH (09:21)
[2016-08-01] MEDS: SitaGLIPtin PHOSPHATE 100 MG TABLET PO SCH (09:21)
[2016-08-01] MEDS: ATORVASTATIN CALCIUM 10 MG TABLET PO SCH (09:21)
[2016-08-01] MEDS: AmLODIPine BESYLATE 10 MG TABLET PO SCH (09:21)
[2016-08-01] MEDS: MetFORMIN HCL 500 MG TABLET PO SCH (09:21)
[2016-08-01] MEDS: ACYCLOVIR 800 MG TABLET PO SCH ×3 (09:22→21:04)
[2016-08-01] MEDS: CETIRIZINE HCL 10 MG TABLET PO SCH (09:22)
[2016-08-01] MEDS: PANTOPRAZOLE SODIUM 40 MG DR TABLET PO SCH (09:22)
[2016-08-01] MEDS: RIVAROXABAN 10 MG TABLET PO SCH (09:22)
[2016-08-01] MEDS: MONTELUKAST SODIUM 10 MG TABLET PO SCH (09:22)
[2016-08-01 11:09] VITALS: BP 104/59
[2016-08-01 17:46] VITALS: BP 116/62
[2016-08-01 19:40] VITALS: BP 109/51
[2016-08-01 23:22] VITALS: BP 111/56
[2016-08-02] MEDS: PIPERACILLIN SODIUM/TAZOBACTAM 2.25 GM in DEXTROSE 5%-WATER 50 ML IV SCH ×4 (00:12→17:23)
[2016-08-02] MEDS: NITROGLYCERIN 2% (1 GM=INCH) PACKET TP SCH ×3 (00:13→15:59)
[2016-08-02] MEDS: IPRATROPIUM BROMIDE 0.5 MG/2.5 ML NEB SOLUTION NEB SCH ×4 (02:30→19:28)
[2016-08-02] MEDS: ALBUTEROL SULFATE 2.5 MG/0.5 ML NEB SOLUTION NEB SCH ×4 (02:30→19:28)
[2016-08-02 04:45] VITALS: BP 132/69
[2016-08-02 07:20] VITALS: BP 123/64
[2016-08-02 07:33] LABS: GLUCOSE,POINT OF CARE 124 MG/DL (70-110)
[2016-08-02 07:34] LABS: EOSINOPHILS % (AUTO) 1.7 % (1.0-6.0); HEMATOCRIT 32.2 % (36-46); HEMOGLOBIN 10.4 g/dL (12.0-16.0); LYMPHOCYTES # (AUTO) 1.5 K/uL (1.0-4.8); LYMPHOCYTES % (AUTO) 9.5 % (22.0-44.0); MEAN CORPUSCULAR HEMOGLOBIN 29.2 pg (26.0-34.0); MEAN CORPUSCULAR HGB CONC 32.2 G/dL (31.0-37.0); MEAN CORPUSCULAR VOLUME 91 fL (80-100); MONOCYTES # (AUTO) 0.5 K/uL (0.1-1.0); MONOCYTES % (AUTO) 3.4 % (2.0-9.0); NEUTROPHILS # (AUTO) 13.2 K/uL (1.8-7.7); PLATELET COUNT (AUTO) 206 K/uL (150-450); RED BLOOD CELL COUNT(AUTO) 3.55 MIL/uL (4.00-5.20); RED CELL DISTRIBUTION WIDTH 14.2 % (11.5-14.5); WHITE BLOOD COUNT (AUTO) 15.4 K/uL (4.5-11.0)
[2016-08-02 07:35] LABS: NEUTROPHILS % (AUTO) 85.4 % (40.0-70.0)
[2016-08-02 07:42] LABS: ANION GAP 5 mmol/L (8-16); CALCIUM, TOTAL 8.7 mg/dL (8.8-10.5); CARBON DIOXIDE 38 mmol/L (22-29); CHLORIDE 97 mmol/L (98-107); CREATININE 0.83 mg/dL (0.60-1.30); GLOMERULAR FILTR. RATE CALC > 60 mL/min (>60); POTASSIUM 3.2 mmol/L (3.5-5.1); SODIUM SERUM 140 mmol/L (136-145); UREA NITROGEN, BLOOD 12 mg/dL (7-18)
[2016-08-02] MEDS: ATORVASTATIN CALCIUM 10 MG TABLET PO SCH (08:31)
[2016-08-02] MEDS: FLUTICASONE PROPIONATE 50 MCG/SPRAY 16 GM NASAL SPRAY NASAL SCH ×2 (08:31→20:16)
[2016-08-02] MEDS: DIGOXIN 125 MCG TABLET PO SCH (08:31)
[2016-08-02] MEDS: AmLODIPine BESYLATE 10 MG TABLET PO SCH (08:31)
[2016-08-02] MEDS: MetFORMIN HCL 500 MG TABLET PO SCH (08:31)
[2016-08-02] MEDS: CETIRIZINE HCL 10 MG TABLET PO SCH (08:32)
[2016-08-02] MEDS: MONTELUKAST SODIUM 10 MG TABLET PO SCH (08:32)
[2016-08-02] MEDS: ACYCLOVIR 800 MG TABLET PO SCH ×3 (08:32→20:16)
[2016-08-02] MEDS: RIVAROXABAN 10 MG TABLET PO SCH (08:32)
[2016-08-02] MEDS: PANTOPRAZOLE SODIUM 40 MG DR TABLET PO SCH (08:32)
[2016-08-02] MEDS: POTASSIUM CHLORIDE 20 MEQ ER TABLET PO PRN (10:13)
[2016-08-02 10:56] VITALS: BP 105/60
[2016-08-02] MEDS: SitaGLIPtin PHOSPHATE 100 MG TABLET PO SCH (11:48)
[2016-08-02] MEDS: INSULIN ASPART 100 UNITS/ML SQ PRN ×2 (11:50→17:26)
[2016-08-02 15:54] VITALS: BP 111/51
[2016-08-02 20:08] VITALS: BP 105/53
[2016-08-02 20:12] LABS: GLUCOSE COMMENT 1 Received Meds; GLUCOSE,POINT OF CARE 181 MG/DL (70-110)
[2016-08-02 23:46] VITALS: BP 120/62
[2016-08-03] VITALS (7 sets, daily range): BP systolic 110–142; BP diastolic 48–71
[2016-08-03] MEDS: NITROGLYCERIN 2% (1 GM=INCH) PACKET TP SCH ×4 (00:48→23:27)
[2016-08-03] MEDS: AMPICILLIN SODIUM 2 GM/NS 100 ML IV SCH ×4 (00:48→23:27)
[2016-08-03] MEDS: CefTRIAXone 1 GM/DEXTROSE 50 ML IV SCH ×3 (01:58→23:27)
[2016-08-03] MEDS: ALBUTEROL SULFATE 2.5 MG/0.5 ML NEB SOLUTION NEB SCH ×4 (02:28→19:29)
[2016-08-03] MEDS: IPRATROPIUM BROMIDE 0.5 MG/2.5 ML NEB SOLUTION NEB SCH ×4 (02:28→19:29)
[2016-08-03 07:32] LABS: EOSINOPHILS # (AUTO) 0.27 K/uL (0.00-0.70); EOSINOPHILS % (AUTO) 1.95 % (1.0-6.0); HEMATOCRIT 31.9 % (36-46); HEMOGLOBIN 10.7 g/dL (12.0-16.0); LYMPHOCYTES % (AUTO) 7.4 % (22.0-44.0); MEAN CORPUSCULAR HEMOGLOBIN 29.8 pg (26.0-34.0); MEAN CORPUSCULAR HGB CONC 33.4 G/dL (31.0-37.0); MEAN CORPUSCULAR VOLUME 89 fL (80-100); MONOCYTES # (AUTO) 0.8 K/uL (0.1-1.0); MONOCYTES % (AUTO) 5.7 % (2.0-9.0); NEUTROPHILS # (AUTO) 11.7 K/uL (1.8-7.7); PLATELET COUNT (AUTO) 217 K/uL (150-450); RED BLOOD CELL COUNT(AUTO) 3.58 MIL/uL (4.00-5.20); RED CELL DISTRIBUTION WIDTH 14.3 % (11.5-14.5); WHITE BLOOD COUNT (AUTO) 13.8 K/uL (4.5-11.0)
[2016-08-03] MEDS ORDERED: FentaNYL CITRATE-PF 100 MCG/2 ML VIAL ONE (07:42)
[2016-08-03] MEDS ORDERED: MIDAZOLAM HCL 2 MG/2 ML VIAL ONE (07:43)
[2016-08-03] MEDS ORDERED: BENZOCAINE 20% 50 MCG/SPRAY 57 GM ONE (07:43)
[2016-08-03 07:56] LABS: CALCIUM, TOTAL 8.4 mg/dL (8.8-10.5); CHLORIDE 97 mmol/L (98-107); CREATININE 0.87 mg/dL (0.60-1.30); GLOMERULAR FILTR. RATE CALC > 60 mL/min (>60); POTASSIUM 3.5 mmol/L (3.5-5.1); SODIUM SERUM 139 mmol/L (136-145); UREA NITROGEN, BLOOD 9 mg/dL (7-18)
[2016-08-03 07:57] LABS: ANION GAP 2 mmol/L (8-16)
[2016-08-03 07:58] LABS: CARBON DIOXIDE 40 mmol/L (22-29)
[2016-08-03] MEDS ORDERED: BENZOCAINE 20% 30 ML SOLUTION TP ONE (08:00)
[2016-08-03] MEDS ORDERED: MIDAZOLAM HCL 2 MG/2 ML VIAL IVP ONE (08:00)
[2016-08-03] MEDS ORDERED: FentaNYL CITRATE-PF 100 MCG/2 ML VIAL IVP ONE (08:00)
[2016-08-03] MEDS: ACYCLOVIR 800 MG TABLET PO SCH ×3 (09:42→21:59)
[2016-08-03] MEDS: FLUTICASONE PROPIONATE 50 MCG/SPRAY 16 GM NASAL SPRAY NASAL SCH ×2 (09:42→21:59)
[2016-08-03] MEDS: ATORVASTATIN CALCIUM 10 MG TABLET PO SCH (09:43)
[2016-08-03] MEDS: SitaGLIPtin PHOSPHATE 100 MG TABLET PO SCH (09:43)
[2016-08-03] MEDS: CETIRIZINE HCL 10 MG TABLET PO SCH (09:43)
[2016-08-03] MEDS: MONTELUKAST SODIUM 10 MG TABLET PO SCH (09:43)
[2016-08-03] MEDS: MetFORMIN HCL 500 MG TABLET PO SCH (09:43)
[2016-08-03] MEDS: PANTOPRAZOLE SODIUM 40 MG DR TABLET PO SCH (09:44)
[2016-08-03] MEDS: RIVAROXABAN 10 MG TABLET PO SCH (09:44)
[2016-08-03] MEDS: AmLODIPine BESYLATE 10 MG TABLET PO SCH (09:44)
[2016-08-03] MEDS: DIGOXIN 125 MCG TABLET PO SCH (09:44)
[2016-08-03] MEDS ORDERED: ATOR10TA84 PO (15:12)
[2016-08-03] MEDS ORDERED: ACYC800T PO (15:24)
[2016-08-03] MEDS ORDERED: AUD NEB ×4 (15:30→15:54)
[2016-08-03] MEDS ORDERED: AMPI2VIA9 IVPB (15:37)
[2016-08-03] MEDS ORDERED: CEFT1FRO3 IVPB (15:46)
[2016-08-03] MEDS ORDERED: FLUT44HFA IH (15:47)
[2016-08-03] MEDS ORDERED: IPRA3AMP4 NEB (15:53)
[2016-08-03] MEDS ORDERED: D50SYG IVP (15:59)
[2016-08-03] MEDS ORDERED: INSNOV SQ (16:05)
[2016-08-03] MEDS ORDERED: ONDA2VIA2 IV (16:07)
[2016-08-03] MEDS ORDERED: OXYC-341 PO (16:10)
[2016-08-03] MEDS ORDERED: ZOLP10 PO (16:11)
[2016-08-03] MEDS ORDERED: KDUR20 PO (16:34)
[2016-08-03 21:02] LABS: GLUCOSE,POINT OF CARE 135 MG/DL (70-110)
[2016-08-04 00:18] VITALS: BP 124/53
[2016-08-04] MEDS: IPRATROPIUM BROMIDE 0.5 MG/2.5 ML NEB SOLUTION NEB SCH ×2 (01:52→07:23)
[2016-08-04] MEDS: ALBUTEROL SULFATE 2.5 MG/0.5 ML NEB SOLUTION NEB SCH ×2 (01:52→07:23)
[2016-08-04 04:15] VITALS: BP 118/56
[2016-08-04 05:48] LABS: GLUCOSE,POINT OF CARE 115 MG/DL (70-110)
[2016-08-04 05:48] LABS: GLUCOSE,POINT OF CARE 115 MG/DL (70-110)
[2016-08-04 06:39] LABS: EOSINOPHILS % (AUTO) 2.3 % (1.0-6.0); HEMATOCRIT 29.1 % (36-46); HEMOGLOBIN 9.4 g/dL (12.0-16.0); LYMPHOCYTES # (AUTO) 1.4 K/uL (1.0-4.8); LYMPHOCYTES % (AUTO) 9.9 % (22.0-44.0); MEAN CORPUSCULAR HEMOGLOBIN 29.4 pg (26.0-34.0); MEAN CORPUSCULAR HGB CONC 32.2 G/dL (31.0-37.0); MEAN CORPUSCULAR VOLUME 91 fL (80-100); MONOCYTES # (AUTO) 0.6 K/uL (0.1-1.0); MONOCYTES % (AUTO) 4.4 % (2.0-9.0); NEUTROPHILS # (AUTO) 12.2 K/uL (1.8-7.7); NEUTROPHILS % (AUTO) 83.4 % (40.0-70.0); PLATELET COUNT (AUTO) 202 K/uL (150-450); RED BLOOD CELL COUNT(AUTO) 3.18 MIL/uL (4.00-5.20); RED CELL DISTRIBUTION WIDTH 14.1 % (11.5-14.5); WHITE BLOOD COUNT (AUTO) 14.7 K/uL (4.5-11.0)
[2016-08-04 07:04] LABS: ANION GAP 1 mmol/L (8-16); CALCIUM, TOTAL 8.2 mg/dL (8.8-10.5); CARBON DIOXIDE 39 mmol/L (22-29); CHLORIDE 99 mmol/L (98-107); CREATININE 0.77 mg/dL (0.60-1.30); GLOMERULAR FILTR. RATE CALC > 60 mL/min (>60); POTASSIUM 3.3 mmol/L (3.5-5.1); SODIUM SERUM 139 mmol/L (136-145); UREA NITROGEN, BLOOD 8 mg/dL (7-18)
[2016-08-04 08:12] VITALS: BP 111/55
[2016-08-04] MEDS: NITROGLYCERIN 2% (1 GM=INCH) PACKET TP SCH (08:54)
[2016-08-04] MEDS: AMPICILLIN SODIUM 2 GM/NS 100 ML IV SCH (08:54)
[2016-08-04] MEDS: FLUTICASONE PROPIONATE 50 MCG/SPRAY 16 GM NASAL SPRAY NASAL SCH (08:55)
[2016-08-04] MEDS: MetFORMIN HCL 500 MG TABLET PO SCH (08:56)
[2016-08-04] MEDS: SitaGLIPtin PHOSPHATE 100 MG TABLET PO SCH (08:56)
[2016-08-04] MEDS: DIGOXIN 125 MCG TABLET PO SCH (08:57)
[2016-08-04] MEDS: AmLODIPine BESYLATE 10 MG TABLET PO SCH (08:58)
[2016-08-04] MEDS: ATORVASTATIN CALCIUM 10 MG TABLET PO SCH (08:58)
[2016-08-04] MEDS: MONTELUKAST SODIUM 10 MG TABLET PO SCH (08:59)
[2016-08-04] MEDS: RIVAROXABAN 10 MG TABLET PO SCH (08:59)
[2016-08-04] MEDS: PANTOPRAZOLE SODIUM 40 MG DR TABLET PO SCH (08:59)
[2016-08-04] MEDS: ACYCLOVIR 800 MG TABLET PO SCH (08:59)
[2016-08-04] MEDS: POTASSIUM CHLORIDE 20 MEQ ER TABLET PO PRN (09:00)
[2016-08-04] MEDS: CETIRIZINE HCL 10 MG TABLET PO SCH (09:00)
[2016-08-04 11:35] VITALS: BP 120/51
[2016-08-04] MEDS: CefTRIAXone 1 GM/DEXTROSE 50 ML IV SCH (12:03)
[2016-08-04 15:10] VITALS: BP 138/55
[2016-08-04 15:27] LABS: GLUCOSE,POINT OF CARE 89 MG/DL (70-110)
[2016-08-06 11:41] LABS: GLUCOSE COMMENT 1 Received Meds; GLUCOSE,POINT OF CARE 225 MG/DL (70-110)
[2016-08-06 11:47] LABS: GLUCOSE COMMENT 1 Received Meds; GLUCOSE,POINT OF CARE 215 MG/DL (70-110)
[2016-08-06 11:48] LABS: GLUCOSE COMMENT 1 Received Meds; GLUCOSE,POINT OF CARE 208 MG/DL (70-110)
[2016-08-06 11:49] LABS: GLUCOSE,POINT OF CARE 153 MG/DL (70-110)
[2016-08-06 11:49] LABS: GLUCOSE COMMENT 1 Received Meds; GLUCOSE,POINT OF CARE 261 MG/DL (70-110)
[2016-08-06 11:49] LABS: GLUCOSE,POINT OF CARE 90 MG/DL (70-110)
[2016-08-06 11:49] LABS: GLUCOSE COMMENT 1 Received Meds; GLUCOSE,POINT OF CARE 202 MG/DL (70-110)
[2016-08-06 11:52] LABS: GLUCOSE,POINT OF CARE 104 MG/DL (70-110)
[2016-08-06 11:52] LABS: GLUCOSE,POINT OF CARE 138 MG/DL (70-110)
[2016-08-06 11:53] LABS: GLUCOSE,POINT OF CARE 140 MG/DL (70-110)
[2016-08-06 11:53] LABS: GLUCOSE COMMENT 1 Received Meds; GLUCOSE,POINT OF CARE 216 MG/DL (70-110)
[2016-08-06 11:57] LABS: GLUCOSE,POINT OF CARE 112 MG/DL (70-110)
[2016-08-06 11:58] LABS: GLUCOSE,POINT OF CARE 110 MG/DL (70-110)
[2016-08-10] MEDS ORDERED: ALENDRONATE SODIUM 70 MG TABLET PO SCH (06:30)
== END 2016-08-04 15:25 | DRG 871 ==
LOC: EMS 15:07 → 5N 18:25
PROVIDERS: ADMIT Hospitalist; ATTEND Hospitalist
PROC: 5A09457 Assistance with Respiratory Ventilation, 24-96 Consecutive Hours, Continuous Positive Airway Pressure (ICD-10-PCS; principal; 2016-07-26)
PROC: B24BZZ4 Ultrasonography of Heart with Aorta, Transesophageal (ICD-10-PCS; 2016-08-03)
DX: A41.51 Sepsis due to Escherichia coli [E. coli] (principal); J96.01 Acute respiratory failure with hypoxia; E43 Unspecified severe protein-calorie malnutrition; J18.9 Pneumonia, unspecified organism; I50.43 Acute on chronic combined systolic (congestive) and diastolic (congestive) heart failure; N17.9 Acute kidney failure, unspecified; N39.0 Urinary tract infection, site not specified; J44.1 Chronic obstructive pulmonary disease with (acute) exacerbation; Z68.1 Body mass index [BMI] 19.9 or less, adult; J44.0 Chronic obstructive pulmonary disease with (acute) lower respiratory infection; I13.0 Hypertensive heart and chronic kidney disease with heart failure and stage 1 through stage 4 chronic kidney disease, or unspecified chronic kidney disease; E87.4 Mixed disorder of acid-base balance; M48.54XA Collapsed vertebra, not elsewhere classified, thoracic region, initial encounter for fracture; E78.5 Hyperlipidemia, unspecified; N18.9 Chronic kidney disease, unspecified; Z16.24 Resistance to multiple antibiotics; K80.20 Calculus of gallbladder without cholecystitis without obstruction; B02.9 Zoster without complications; B95.2 Enterococcus as the cause of diseases classified elsewhere; E11.22 Type 2 diabetes mellitus with diabetic chronic kidney disease; I48.2 Chronic atrial fibrillation; I49.5 Sick sinus syndrome; J45.909 Unspecified asthma, uncomplicated; E88.09 Other disorders of plasma-protein metabolism, not elsewhere classified; J84.10 Pulmonary fibrosis, unspecified; Z79.899 Other long term (current) drug therapy; Z79.01 Long term (current) use of anticoagulants; Z79.2 Long term (current) use of antibiotics; Z79.84 Long term (current) use of oral hypoglycemic drugs; Z88.8 Allergy status to other drugs, medicaments and biological substances; Z95.0 Presence of cardiac pacemaker; Z91.048 Other nonmedicinal substance allergy status; Y93.89 Activity, other specified; Y92.89 Other specified places as the place of occurrence of the external cause; Y99.8 Other external cause status
CPT/HCPCS: 70450; 71250; 74176; 76700; 82805; 82962; 83605; 83735; 84132; 87040; 87081; 87086; 93005; 93306; 93312; 94640; 94660; 96365; 96366; 96368; 96375; 97116; 97162; 97530; 99291; J0131; J0290; J0456; J0696; J1940; J2250; J2543; J2920; J2930; J3010; J3370; J3490; J7040; J7060; P9046